=== PATIENT | male | born 1950 | race Caucasian/White ===

== ENCOUNTER 2025-06-02 11:33 | Outpatient (CLI) | payer MEDICARE, SELFPAY ==
--- NOTE | 2025-06-02 06:00 | DI.RAD_ITS ---
Exam(s) XR PAIN CLINIC LUMBAR SP 2V EXAM: XR PAIN CLINIC LUMBAR SP 2V CLINICAL HISTORY: DX: Lumbar Spondylosis TECHNIQUE: 2D and realtime digital imaging was performed. CONTRAST MATERIAL: Refer to procedure report. COMPARISON: No exams were available for comparison FINDINGS: Fluoroscopy was provided for Dr. Alvarenga during the performance of a bilateral facet joint injection. Please refer to the procedure report for complete details. Ka,r=13.8 mGy IMPRESSION: RADIATION DOSE DELIVERED: 0.0 0.0 0
[2025-06-02 11:54] VITALS: BP 139/84; PULSE 54; RESP 18; TEMP 36.4; O2SAT 97
[2025-06-02 12:29] VITALS: PULSE 55; O2SAT 96
[2025-06-02 12:30] VITALS: PULSE 53; O2SAT 97
[2025-06-02 12:40] VITALS: PULSE 60; O2SAT 97
--- NOTE | 2025-06-02 12:45 | PDOC.PAIN ---
Date of service: 06/02/25 Time of Service: 12:52 Pain Managment Procedure Note Procedure Note Procedure Note: Diagnostic Lumbar Facet Joint Injection ? Location: Bilateral Lumbar Facet Joints ? Levels: L4-5, L5-S1 ? Pre-procedure Diagnosis: M47.817 Spondylosis without myelopathy or radiculopathy, lumbosacral region M47.816 Spondylosis without myelopathy or radiculopathy, lumbar region ? Post-procedure Diagnosis:? The same as above ? Sedation:? None ? Estimated blood loss:? less than 2 ml ? Surgeon: Ismael Alvarenga MD COMMENT: Pain 6 /10 .Decision was made to proceed with intra-articular facet injections for the possibility of not having to do medial branch blocks and radiofrequency ablation if patient get long lasting relief (> 3 months). ? Procedure Detail:? The procedure and potential risks were explained to the patient and informed written consent was obtained. The patient was escorted to the procedure room and placed in the prone position. Pillows were utilized for proper positioning and comfort.? Time out was performed in the procedure room with nursing staff confirming the patient's identity, procedure to be performed, allergies, and any blood thinning or anti-platelet medications.? Sterile technique was maintained throughout the procedure.? The patient's lumbosacral area was prepped with chlorhexidine and draped in a sterile fashion. Lidocaine 1% was used to anesthetize the skin. An oblique fluoroscopic view was obtained, with visualization of the facet joint.? A 22gauge, Quincke needle was gently advanced through the facet capsule.? Needle placement was confirmed with fluoroscopy in AP, oblique, and lateral views by injecting 0.25ml of contrast.? 20 mg of Depomedrol and 0.5ml of 0.5% bupivacaine was injected into the capsule at L4-5 Bilateral. This was repeat at L5-S1 Bilateral? The patient tolerated the procedure well and was discharged home with instructions. Permanent images saved and recorded. Plan:? Follow up prn COMMENT:Pain went from 6/10 to 0/10. Pain? 100 % better. Will use this as both diagnostic and potentially therapeutic.? With short-term relief from the level that it was not long-lasting then we will proceed with for LMBB #2 and possible radiofrequency ablation. Patient might also be a candidate for basivertebral nerve ablation L3-4 Coding Conscious Sedation used for procedure: No CPT Codes: LMBB (includes Fluoro) Lumbar/Sacral, single lvl *BILATERAL* - [id number] ([id number]~G5) LMBB (includes Fluoro) Lumbar/Sacral, 2nd lvl - 41231 ([id number] ~G) LT - LEFT SIDE, RT - RIGHT SIDE Additional Codes: Date of Service (83505) Date of service: 06/02/25 Diagnoses: M47.817 Spondylosis without myelopathy or radiculopathy, lumbosacral region M47.816 Spondylosis without myelopathy or radiculopathy, lumbar region
[2025-06-02] MEDS: Nerve Block Tray 1 EACH MC (12:51)
[2025-06-02] MEDS: Omnipaque 240 MG/ML 50 ML BTL IJ (12:51)
[2025-06-02] MEDS: Bupivacaine 0.5% Pres-Free 10 ML VIAL IJ (12:51)
[2025-06-02] MEDS: methylPREDNISolone ACETATE 80 MG/ML VIAL IJ (12:52)
== END 2025-06-02 11:34 | disposition home or self-care (01) ==
LOC: PC 11:35
PROVIDERS: PCP Family Medicine; Visit Provider Anesthesiology Pain Medicine
DX: M54.50 Low back pain, unspecified (principal); M47.816 Spondylosis without myelopathy or radiculopathy, lumbar region; M47.817 Spondylosis without myelopathy or radiculopathy, lumbosacral region
CPT/HCPCS: 64493; 64494; 72100; J0665; J1010; Q9967

== ENCOUNTER 2025-07-21 08:42 | Outpatient (CLI) | payer MEDICARE, SELFPAY ==
--- NOTE | 2025-07-21 06:00 | DI.RAD_ITS ---
Exam(s) XR PAIN CLINIC LUMBAR SP 2V EXAM: XR PAIN CLINIC LUMBAR SP 2V CLINICAL HISTORY: Dx: Lumbar Spondylosis TECHNIQUE: 2D and realtime digital imaging was performed. CONTRAST MATERIAL: Refer to procedure report. COMPARISON: No exams were available for comparison FINDINGS: Fluoroscopy was provided for Dr. Alvarenga during the performance of a lumbar medial branch block. Please refer to the procedure report for complete details. Ka,r=3.81 mGy IMPRESSION: RADIATION DOSE DELIVERED: 0.0 0.0 0
[2025-07-21 08:54] VITALS: BP 158/83; PULSE 56; RESP 18; TEMP 36.7; O2SAT 96
--- NOTE | 2025-07-21 09:28 | PDOC.PAIN_ITS ---
Date of service: 07/21/25 Time of Service: 10:06 Pain Managment Procedure Note Procedure Note Procedure Note: LUMBAR MEDIAL BRANCH BLOCK #2 Location:Bilateral Medial Branches ? Levels: L3,4,5? (L4-5, L5-S1 FACET) ? Pre-procedure Diagnosis: M47.817 Spondylosis without myelopathy or radiculopathy, lumbosacral region M47.816 Spondylosis without myelopathy or radiculopathy, lumbar region ? Post-procedure Diagnosis:? The same as above ? Sedation: NONE? Estimated blood loss:? less than 2 ml ? Surgeon:? Ismael Alvarenga MD COMMENT: Patient had? GREATER THAN 80 % relief after the first medial branch block for greater than the duration of the local anesthetic.? Patient had bilateral intra-articular facet injections at L4-5 and L5-S1 that gave him sustained relief for 3 weeks PRE PROCEDURE PAIN SCORE: 7/10 ? Procedure Detail:? The procedure and potential risks were explained to the patient and informed written consent was obtained. The patient was escorted to the procedure room and placed in the prone position. Pillows were utilized for proper positioning and comfort.? Time out was performed in procedure room with nursing staff confirming the patient's identity, procedure to be performed, allergies, and any blood thinning or anti-platelet medications. The patient's lower back was prepped with chlorhexidine and draped in a sterile fashion. Sterile technique was maintained throughout the procedure.? Sterile gloves were used, a face mask was worn, and new single dose vials of all medications were used with the top being swabbed with alcohol and given time to dry prior to with drawal of medication.? A left and right-sided oblique fluoroscopic view was obtained, with visualization of the: ?RIGHT and LEFT L3,4 and DORSAL RAMUS L5 AT SACRAL ALA ? junction of the transverse process and superior articular process. Lidocaine 1% was used to anesthetize the skin. A 22-gauge Quincke needle was advanced along the superior margin of the transverse process and lateral to the articular process.? It was directed inferiorly and medially so that the tip struck the junction of the base of the transverse process and the superior articular process. The needle was then walked over the superior aspect of the transverse process and advanced slightly along the course of the L3,4,5 medial branch nerves. Proper placement was verified in A/P, oblique and lateral views under fluoroscopy. At this location, following negative aspiration, 0.5ml 2% lidocaine was injected.? The patient tolerated the procedure well and was discharged home with instructions. Permanent images saved and recorded. Follow-up:?? Will plan to proceed with lumbar medial branch RFA if the patient gets good relief from today's procedure lasting for at least 2 hours. COMMENT:Pain went from 03/05 to 12/04. Before the patient left patient had 60% pain relief. Will consider basivertebral nerve ablation if he does not meet criteria for radiofrequency ablation Coding Conscious Sedation used for procedure: No CPT Codes: LMBB (includes Fluoro) Lumbar/Sacral, 2nd lvl - 07351 ([id number] ~G) RT - RIGHT SIDE, LT - LEFT SIDE LMBB (includes Fluoro) Lumbar/Sacral, single lvl *BILATERAL* - [id number] ([id number]~G5) 50 - BILATERAL PROCEDURE Additional Codes: Date of Service () Diagnoses: M47.817 Spondylosis without myelopathy or radiculopathy, lumbosacral region M47.816 Spondylosis without myelopathy or radiculopathy, lumbar region
[2025-07-21 09:29] VITALS: PULSE 62; O2SAT 96
[2025-07-21 09:30] VITALS: PULSE 66; O2SAT 95
[2025-07-21 09:40] VITALS: PULSE 62; O2SAT 96
[2025-07-21] MEDS: Bupivacaine 0.5% Pres-Free 10 ML VIAL IJ (09:54)
[2025-07-21] MEDS: Nerve Block Tray 1 EACH MC (09:54)
== END 2025-07-21 08:43 | disposition home or self-care (01) ==
LOC: PC 08:42
PROVIDERS: PCP Family Medicine; Visit Provider Anesthesiology Pain Medicine
DX: M54.50 Low back pain, unspecified (principal); M47.816 Spondylosis without myelopathy or radiculopathy, lumbar region; M47.817 Spondylosis without myelopathy or radiculopathy, lumbosacral region
CPT/HCPCS: 64493; 64494; 72100; J0665